=== PATIENT | female | born 1950 | race Caucasian/White ===

== ENCOUNTER → 2016-07-16 | Outpatient (CLI) | payer MEDICARE, BC, OTHER ==
[~2016-07-16] MED LIST: /ADVA50050 INH; ADVAIR INH; ALBU17IN2 INH; ALEVE PO; AUGM875T27 PO; BENA25CA2 PO; BENEPOW7 PO; BORON PO; CALCCHW12 OR; CHLORTRIMETON PO; CLAR10CA3 PO; CLIN300C2 PO; FISH1000 OR; FLEXERIL PO; FLON0.05; GLUC500T3 PO; LACTASE ENZYME PO; LOTR5CAP2 PO; LOTREL PO; LOVA20TA2 OR; MUCI600T34 PO; MULTIVIT PO; PRIL40CA PO; PROA1AER INH; PROL60SO SC; RECLAST IV; REFRESH OU; SING10TA31 PO; TYLE325T5 PO; VITA1CAP4 PO; VITA500T PO; VITAMIN D50000 UNT OR; [UNRECOGNIZED DRUG - OTHER] PO
--- NOTE | 2016-07-16 11:24 | REPMRS ---
Patient History The patient states she had a clinical breast exam in 07/2016. Patient is postmenopausal and has history of other cancer at age 39. Family history of breast cancer in sister at age 50 or over, breast cancer in maternal aunt at age 50 or over, and breast cancer in maternal cousin under age 50. Benign stereotatic breast biopsy of the left breast, 2000. Digital Woman Screen Mammo: July 16, 2016 - Exam #: [id number] Bilateral CC and MLO view(s) were taken. Technologist: Valerie Subramanian Technologist Prior study comparison: July 17, 2015, digital woman screen mammo performed at [facility]. June 29, 2014, digital woman screen mammo performed at [facility]. FINDINGS: The breast tissue is heterogeneously dense. This may lower the sensitivity of mammography. There has been no change in the appearance of the mammogram from the prior studies. There is a moderate amount of residual fibroglandular tissue which is fairly symmetric. There is no interval development of dominant mass, areas of architectural distortion, or clustered microcalcification typical of malignancy. ASSESSMENT: BI-RADS/ACR category 1 mammogram. Negative. Recommendation Routine screening mammogram in 1 year (for women over age 40). This mammogram was interpreted with the aid of an FDA-approved computer-aided dectection system. Electronically Signed By: John King MD 07/16/16 112
== END ==
LOC: M WHC 09:01
PROVIDERS: ATTEND Nurse Practitioner Family
DX: Z12.31 Encounter for screening mammogram for malignant neoplasm of breast (principal); Z80.3 Family history of malignant neoplasm of breast; Z78.0 Asymptomatic menopausal state; Z12.12 Encounter for screening for malignant neoplasm of rectum; Z12.4 Encounter for screening for malignant neoplasm of cervix; N81.10 Cystocele, unspecified
CPT/HCPCS: 82270; G0101; G0202

== ENCOUNTER → 2016-10-02 | Outpatient (REF) | payer MEDICARE, BC, OTHER ==
[~2016-10-02] MED LIST changes: -AUGM875T27 PO; +AUGM875T28 PO; -MUCI600T34 PO; +MUCI600T37 PO; -PROA1AER INH; +PROAAER10 INH; +VITA-137 PO; -VITA1CAP4 PO
== END ==
LOC: M LAB REF 17:05
PROVIDERS: ATTEND Nurse Practitioner Family
DX: Z51.81 Encounter for therapeutic drug level monitoring (principal); Z79.899 Other long term (current) drug therapy

== ENCOUNTER → 2017-05-04 | Outpatient (REF) | payer MEDICARE, BC, OTHER ==
[2017-05-04 20:29] LABS: INFLUENZA A AMPLIFICATION NEGATIVE (NEGATIVE); INFLUENZA B AMPLIFICATION NEGATIVE (NEGATIVE)
== END ==
LOC: M LAB REF 17:34
DX: R05 Cough (principal)
CPT/HCPCS: 87502

== ENCOUNTER → 2018-07-18 | Outpatient (CLI) | payer MEDICARE, BC, OTHER ==
[~2018-07-18] MED LIST changes: -/ADVA50050 INH; +ADVA1AER2 INH
--- NOTE | 2018-07-18 12:12 | REPMRS ---
Patient History The patient states she had a clinical breast exam in 07/2018. Patient is postmenopausal and has history of skin cancer at age 39. Family history of breast cancer at age 50 or over in maternal aunt, breast cancer under age 50 in maternal cousin, breast cancer at age 50 or over in sister. Benign stereotatic breast biopsy of the left breast, 2000. No Hormone Replacement Therapy Digital Woman Screen Mammo: July 18, 2018 - Exam #: [id number] Bilateral CC and MLO view(s) were taken. Technologist: Megan Forrest, Technologist Prior study comparison: July 16, 2017, digital woman screen mammo performed at [facility]. July 16, 2016, digital woman screen mammo performed at [facility]. July 17, 2015, digital woman screen mammo performed at [facility]. FINDINGS: The breast tissue is heterogeneously dense. This may lower the sensitivity of mammography. There is a moderate amount of heterogeneously dense fibroglandular tissue which is fairly symmetric. There is no interval development of dominant mass, architectural distortion, or clustered microcalcification typical of malignancy. There has been no change in the appearance of the mammogram from the prior studies. 3-D tomosynthesis shows no additional findings. Assessment: BI-RADS/ACR category 1 mammogram. Negative Mammogram. Recommendation Routine screening mammogram of both breasts in 1 year (for women over age 40). This patient's Lifetime Breast Cancer RIsk is estimated at 15.1 %. This mammogram was interpreted with the aid of an FDA-approved computer-aided dectection system. Electronically Signed By: Gallito Barrow MD 07/18/18 [id number]
== END ==
LOC: M WHC 09:48
PROVIDERS: ATTEND Nurse Practitioner Family
DX: Z01.419 Encounter for gynecological examination (general) (routine) without abnormal findings (principal); Z12.31 Encounter for screening mammogram for malignant neoplasm of breast; Z78.0 Asymptomatic menopausal state; Z85.828 Personal history of other malignant neoplasm of skin; Z80.3 Family history of malignant neoplasm of breast; Z86.018 Personal history of other benign neoplasm
CPT/HCPCS: 77063; 77067; G0101

== ENCOUNTER → 2019-07-20 | Outpatient (CLI) | payer MEDICARE, BC, OTHER ==
--- NOTE | 2019-07-20 12:01 | REPMRS ---
Patient History The patient states she had a clinical breast exam in July 2019. Family history of breast cancer at age 50 or over in maternal aunt, breast cancer under age 50 in maternal cousin, breast cancer at age 50 or over in sister. Benign stereotatic breast biopsy of the left breast, 2000. No Hormone Replacement Therapy Digital Woman Screen Mammo: July 20, 2019 - Exam #: [id number] Bilateral CC and MLO view(s) were taken. Technologist: Alley Bangura, Technologist Prior study comparison: July 18, 2018, bilateral digital woman screen mammo performed at [facility]. July 16, 2017, digital woman screen mammo performed at [facility]. July 16, 2016, digital woman screen mammo performed at [facility]. FINDINGS: There are scattered fibroglandular densities. The Volpara volumetric breast density category is:B. There has been no change in the appearance of the mammogram from the prior studies. There is a mild amount of scattered fibroglandular density which is fairly symmetric. There is no interval development of dominant mass, architectural distortion, or grouped microcalcification suggestive of malignancy. 3-D tomosynthesis shows no additional findings. Assessment: BI-RADS/ACR category 1 mammogram. Negative Mammogram. Recommendation Routine screening mammogram of both breasts in 1 year (for women over age 40). This patient's Lifetime Breast Cancer Risk is estimated at 14.3 %. This mammogram was interpreted with the aid of an FDA-approved computer-aided dectection system. Electronically Signed By: Gallito Barrow MD 07/20/19 [id number]
--- NOTE | 2019-07-27 14:33 | DEXA ---
AP SPINE L1 - L4 1.077 -1.0 0.7 LT FEMUR TOTAL 0.949 -0.5 1.0 LT NECK 0.834 -1.5 0.2 RT FEMUR TOTAL 0.999 -0.1 1.4 RT NECK 0.827 -1.5 0.2 TOTAL BODY TOTAL OTHER COMMENTS: There is low bone density of the spine and hips. The increased density of the spine does represent a significant change. The increased density of the left hip does not represent significant change. The increased density of the right hip does represent significant change. The density of the spine is increased 20.9% since the initial exam on 02/13/2003. The increased 6.5% since the most recent exam on 07/16/2017. The density of the left hip has decreased 0.9% since initial exam on 02/13/2003. The density of the left hip has increased 1.9% since the most recent exam on 07/16/2017. The density of the right hip has increased 5.3 percent since the initial exam on 02/13/2003. The density of the right hip has increased 3.6% since the most recent exam on 07/16/2017. FOLLOW-UP: Recommendation for the next bone density exam: 2 years. TOM
== END ==
LOC: M WHC 09:35
PROVIDERS: ATTEND Nurse Practitioner Family
DX: Z01.411 Encounter for gynecological examination (general) (routine) with abnormal findings (principal); Z12.31 Encounter for screening mammogram for malignant neoplasm of breast; M81.0 Age-related osteoporosis without current pathological fracture; Z80.3 Family history of malignant neoplasm of breast; Z86.018 Personal history of other benign neoplasm; Z12.12 Encounter for screening for malignant neoplasm of rectum
CPT/HCPCS: 77063; 77067; 77080; 82270; G0101; G0123

== ENCOUNTER → 2019-07-20 | Outpatient (REF) | payer MEDICARE, BC | LOC: M SFHCWAGY 17:17 | PROVIDERS: ATTEND Nurse Practitioner Family | DX: Z12.4 Encounter for screening for malignant neoplasm of cervix (principal); N95.2 Postmenopausal atrophic vaginitis ==

== ENCOUNTER → 2019-07-25 | Outpatient (CLI) | payer MEDICARE, BC, OTHER ==
--- NOTE | 2019-07-25 12:42 | REP ---
PELVIS ULTRASOUND: Transabdominal pelvic ultrasound performed. Bladder measures 11.8 x 7.7 x 10.4 cm. Uterus measures 6.7 x 1.9 x 5.3 cm. Ill-defined calcifications are seen in the myometrium. Endometrial thickness is 3 mm. There is no endometrial fluid collection. The ovaries are normal in size and echotexture, right ovary measuring 1.7 x 1.5 x 2.0 cm and left ovary 2.6 x 1.7 x 1.6 cm. There is no adnexal mass or free fluid identified. There is no evidence of ovarian torsion, blood flow is seen in each ovary with duplex Doppler evaluation. IMPRESSION: No pelvic mass or free fluid identified. Normal endometrial thickness at 3 mm.
== END ==
LOC: M WHC 11:27
PROVIDERS: ATTEND Nurse Practitioner Family
DX: R19.00 Intra-abdominal and pelvic swelling, mass and lump, unspecified site (principal)

== ENCOUNTER 2019-07-28 10:51 | Emergency (ER) | payer MEDICARE, BC, OTHER ==
[~2019-07-28] VITALS: Ht 157.5 cm; Wt 63.4 kg
[2019-07-28 12:07] LABS: BASO # 0.1 10^3/uL (0.0-0.2); BASO % 0.8 % (0.0-1.0); EOS # 0.2 10^3/uL (0.0-0.5); EOS % 3.1 % (0.0-3.0); HEMATOCRIT 41.8 % (36.0-47.0); HEMOGLOBIN 13.5 g/dl (12.0-15.5); LYMPH # 1.2 10^3/uL (1.5-5.0); LYMPH % 20.4 % (24.0-44.0); MEAN CORPUSCULAR HEMOGLOBIN 28.5 pg (27.0-33.0); MEAN CORPUSCULAR HGB CONC 32.3 g/dl (32.0-36.5); MEAN CORPUSCULAR VOLUME 88.2 fl (80.0-96.0); MONO # 0.4 10^3/uL (0.0-0.8); MONO % 6.1 % (0.0-5.0); NEUTROPHILS # 4.2 10^3/uL (1.5-8.5); NEUTROPHILS % 69.3 % (36.0-66.0); PLATELET COUNT, AUTOMATED 250 10^3/uL (150-450); RED BLOOD COUNT 4.74 10^6/uL (4.00-5.40); WHITE BLOOD COUNT 6.1 10^3/uL (4.0-10.0)
--- NOTE | 2019-07-28 12:23 | REP ---
CT BRAIN WITHOUT CONTRAST: REASON: Trauma 2 days ago. PRIORS: None. TECHNIQUE: 4.5 mm contiguous transaxial sections were obtained from the skull base to the cerebral convexities with thin cuts through the posterior fossa without the administration of intravenous contrast. FINDINGS: The ventricles and sulci are consistent with the patient's age. There are no extra-axial fluid collections. There is no mass effect. The deep cerebral white matter is consistent with the patient's age. The orbital and petrous structures, cerebellopontine angles, and posterior fossa are unremarkable. The sella turcica, cavernous, and paracavernous structures are essentially unremarkable. The visualized portions of the paranasal sinuses and mastoid air cells are clear. Images of the skull base show no gross abnormality. IMPRESSION: Essentially unremarkable CT examination of the brain. Electronically Signed by Kana Guo DO 07/28/2019 01:39 P
--- NOTE | 2019-07-28 12:58 | REP ---
CT study of the cervical spine without contrast: History: Injury in a fall. No comparison study. Technique: Helical scanning is acquired and overlapping 2 mm high resolution axial images were generated and reviewed at bone and soft tissue window settings. Coronal and sagittal multiplanar re-formations images are generated. CT findings: There is no evidence of cervical spine element fracture. No skull base fracture is seen. Cervical vertebral body heights are preserved. Alignment is normal. Facet joints are normally aligned bilaterally at each cervical level on multiplanar re-formations images. There is no evidence of intraspinal or paraspinal hematoma. No extra vertebral abnormality is seen. There are degenerative disc changes most pronounced at C3-4, C4-5, and C5-6. Posterior osteophytic ridging is fairly prominent C4-5 and C5-6. There is mild bilateral uncovertebral spurring at these levels. There are mild osteoarthritic facet changes. Impression: Degenerative spondylosis changes. Otherwise negative CT study of the cervical spine without contrast. No fracture seen. Electronically Signed by Aldo Barrow MD 07/28/2019 12:49 P
--- NOTE | 2019-07-28 14:23 | REP ---
PELVIS: THREE VIEWS. HISTORY: Injury in a fall. Tenderness to palpation and ecchymosis. FINDINGS: Tubal ligation bands are visible. The visualized bowel gas pattern is normal. No sacral fracture is seen. SI joints are intact. The presacral soft tissues do not appear to be widened. IMPRESSION: No sacral or coccygeal fracture seen. Electronically Signed by Aldo Barrow MD 07/28/2019 04:16 P
[2019-07-28 14:30] VITALS: BP 157/78
== END 2019-07-28 14:32 | disposition home or self-care (01) ==
LOC: M ED 10:51
DX: S06.0X0A Concussion without loss of consciousness, initial encounter (principal); S16.1XXA Strain of muscle, fascia and tendon at neck level, initial encounter; S30.0XXA Contusion of lower back and pelvis, initial encounter; W18.39XA Other fall on same level, initial encounter; Y92.71 Barn as the place of occurrence of the external cause; I10 Essential (primary) hypertension; E78.5 Hyperlipidemia, unspecified; M81.0 Age-related osteoporosis without current pathological fracture; Z87.442 Personal history of urinary calculi; Z88.1 Allergy status to other antibiotic agents; Z79.899 Other long term (current) drug therapy

== ENCOUNTER → 2020-07-19 | Outpatient (CLI) | payer MEDICARE, BC, OTHER | LOC: M WHC 11:36 | PROVIDERS: ATTEND Obstetrics & Gynecology | DX: N95.0 Postmenopausal bleeding (principal) ==

== ENCOUNTER → 2020-07-19 | Outpatient (CLI) | payer MEDICARE, BC, OTHER ==
[~2020-07-19] MED LIST changes: +ADV500INH INH; +AMLOD/BENAZP; +BONI1TAB PO; +CYCL-707; +FLON27.5; +LOVA20TA2 PO; +MONT10TA10 PO; +NEXI20CA PO; +xyzal
--- NOTE | 2020-07-19 12:54 | REPMRS ---
Patient History The patient states she had a clinical breast exam in July 2020. Family history of breast cancer at age 50 or over in maternal aunt, breast cancer under age 50 in maternal cousin, breast cancer at age 50 or over in sister. Benign stereotatic breast biopsy of the left breast, 2000. No Hormone Replacement Therapy No breast complaints today Patient signed the MRS sheet 1st covid vaccine 05/08/20-right arm-Pfizer 2nd covid vaccine 05/29/20-right arm Best views possible on MLO's, unable to get patient to relax and visualize more muscle Priors on PACS Patient Identification Verified Digital Woman Screen Mammo: July 19, 2020 - Exam #: [id number] Bilateral CC and MLO view(s) were taken. Technologist: Alley Bangura, Technologist Prior study comparison: July 20, 2019, bilateral digital woman screen mammo performed at [facility]. July 18, 2018, bilateral digital woman screen mammo performed at [facility]. FINDINGS: The breast tissue is heterogeneously dense. This may lower the sensitivity of mammography. Screening. Digital screening (2D) mammography was performed bilaterally in the CC and MLO projections. Additionally, breast tomosynthesis (3D mammography) was performed bilaterally in the CC and MLO projections. Todays exam was compared to the prior exams. By history, the patient has no complaints of a palpable breast abnormality or other significant breast complaints. The breasts are unchanged in size and shape. Once again, dense heterogenous fibroglandular elements are seen bilaterally in a stable appearing pattern but to such a degree that the sensitivity of the mammogram in detecting cancer is decreased.There are no antonia-soft tissue densities or spiculated masses. There is no internal architectural distortion. Once again, stable benign appearing calcifications are seen.There are no suspicious antonia-calcific clusters. Skin thickening or nipple retraction is not present. IMPRESSION: BI-RADS Category 2- Benign Findings. There is no evidence of malignant alteration of the breasts. Followup examination recommended in one year. The Volpara volumetric breast density category is C, the breasts are heterogenously dense which may obscure small masses. This mammogram was read with the assistance of [employer],an FDA approved computer aided detection system for mammography. The lifetime Tyrer-Cuzick score is 13.5 % Negative x-ray reports should not delay surgical consultation if a dominant or clinically suspicious mass is present. Not all breast cancers can be identified by mammography. Therefore, we recommend that you continue to perform regular breast self-examination and physical examination and then promptly contact your physician of any concerns or changes. Adenosis and dense breasts may obscure an underlying neoplasm. Assessment: BI-RADS/ACR category 2 mammogram. Benign Findings. Recommendation Routine screening mammogram of both breasts in 1 year. Electronically Signed By: Kana Guo DO 07/19/20 [id number]
== END ==
LOC: M WHC 10:54
PROVIDERS: ATTEND Obstetrics & Gynecology
DX: Z12.31 Encounter for screening mammogram for malignant neoplasm of breast (principal); Z80.3 Family history of malignant neoplasm of breast; Z86.018 Personal history of other benign neoplasm; R92.1 Mammographic calcification found on diagnostic imaging of breast
CPT/HCPCS: 77063; 77067; G0463

== ENCOUNTER → 2020-08-02 | Outpatient (CLI) | payer MEDICARE, BC, OTHER | LOC: M LABSMTC 12:18 | PROVIDERS: ATTEND Anesthesiology | DX: Z20.828 Contact with and (suspected) exposure to other viral communicable diseases (principal); Z11.59 Encounter for screening for other viral diseases ==

== ENCOUNTER 2020-08-07 08:10 | Day surgery (SDC) | payer MEDICARE, BC, OTHER ==
[~2020-08-07] VITALS: Ht 162.6 cm; Wt 59.5 kg
[~2020-08-07 08:10] MED LIST changes: +LIDOCAINE 1% MDV 20ML VIAL SQ PRN; +LR 1,000 ML IV ONE
[2020-08-07] MEDS ORDERED: METHYLENE BLUE 0.5% (5MG/ML) 10 ML AMP (PROVAYBLUE) As Ordered ONE (10:06)
[2020-08-07] MEDS ORDERED: LIDOCAINE W/EPINEPHRINE 1% 20ML VIAL As Ordered ONE (10:06)
[2020-08-07] MEDS ORDERED: EPINEPHrine 1MG/ML INJ 30ML MD-VIAL As Ordered ONE (10:07)
[2020-08-07] MEDS ORDERED: ROCURONIUM BROMIDE 50 MG/5 ML VIAL As Ordered ONE (10:12)
[2020-08-07] MEDS ORDERED: propofoL 200 MG/20 ML VIAL As Ordered ONE (10:12)
[2020-08-07] MEDS ORDERED: LIDOCAINE 2% 100MG/5ML SDV (FOR ANES.) As Ordered ONE (10:12)
[2020-08-07] MEDS ORDERED: MIDAZOLAM INJ 2MG/2ML VIAL (J2250 PER 1MG) As Ordered ONE (10:13)
[2020-08-07] MEDS ORDERED: fentaNYL 100 MCG/2 ML INJECTION (J3010) As Ordered ONE (10:13)
[2020-08-07] MEDS ORDERED: KETOROLAC 60MG 2ML VIAL As Ordered ONE (10:50)
[2020-08-07] MEDS ORDERED: ONDANSETRON 4MG/2ML VIAL As Ordered ONE (10:50)
[2020-08-07] MEDS ORDERED: dexameTHASONE 4 MG/ML 1ML VIAL (J1100 PER 1MG) As Ordered ONE (10:50)
[2020-08-07] MEDS ORDERED: SUGAMMADEX SODIUM 500 MG/5 ML VIAL (BRIDION) As Ordered ONE (10:50)
[2020-08-07] MEDS ORDERED: ONDANSETRON 4MG/2ML VIAL IV PRN (11:40)
[2020-08-07] MEDS ORDERED: PERCOCET 5MG/325MG TAB PO PRN (11:40)
[2020-08-07] MEDS ORDERED: METOCLOPRAMIDE INJ 10MG/2ML VIAL (J2765 PER 1) IV PRN (11:40)
[2020-08-07] MEDS ORDERED: fentaNYL 100 MCG/2 ML INJECTION (J3010) IV PRN (11:40)
[2020-08-07] MEDS ORDERED: LR 1,000 ML IV SCH ×2 (11:40→12:35)
[2020-08-07] MEDS ORDERED: ACETAMINOPH W/CODEINE #3 TAB UD PO PRN (12:35)
[2020-08-07 12:40] VITALS: BP 164/75
--- NOTE | 2020-08-07 16:42 | RO ---
OPERATIVE NOTE DATE OF OPERATION: 08/07/2020 PREOPERATIVE DIAGNOSIS: Nasoseptal deviation, nasal valve collapse. POSTOPERATIVE DIAGNOSIS: Nasoseptal deviation, nasal valve collapse. OPERATIVE PROCEDURE: Septoplasty and nasal valve repair. SURGEON: Sebastien Schulte MD AFTER SCHOOL PROGRAM COORDINATOR: ANESTHESIA: DESCRIPTION OF PROCEDURE: Under general anesthesia with the patient intubated the patient was prepped and draped in usual manner. I infiltrated with Lidocaine with Epinephrine. I used pledgets of Adrenalin 1:1000. I started first by making an incision anteriorly and elevated the mucoperichondrium off the septal cartilage. I dissected posteriorly and inferiorly. I dissected off the maxillary crest. I then divided the quadrangular cartilage from the maxillary crest and ethmoid plate and then removed portion of the ethmoid plate and maxillary crest which were deviated toward the left side. Once that was done everything looked nice and straight. I then closed that wound with 4-0 Monocryl. I then made an incision anterior to the inferior aspect of the nasal bone on both sides incised the nose and elevated the mucoperiosteum. I drilled two holes on either side. I then put 4-0 Monocryl suture through the hole around the inferolateral portion of the lower lateral cartilage on both sides and then back through the nasal bone. I tied that off. This elevated the nasal valve area. I closed the mucosa with 4-0 chromic. The patient tolerated the procedure well. 10 mL estimated blood loss. The patient was extubated and transferred to the recovery room in excellent condition.
--- NOTE | 2020-08-10 00:16 | ECGEPIP ---
[facility] Test Date: 2020-08-07 Pat Name: JD RANKIN Department: Room: - Gender: Female Erp Specialist: CALEB : [id number] Requested By: ALMA GREGORY Order Number: [id number] Reading MD: Jose Chaudhari Measurements Intervals [place] Rate: 63 P: 70 OR: 160 QRS: -19 QRSD: 94 T: 32 QT: 418 QTc: 427 Interpretive Statements Normal sinus rhythm Minimal voltage criteria for LVH, may be normal variant ( Paco product ) Compared to prior tracings (2) in the system, no remarkable changes Electronically Signed on 08-10-2020 0:15:53 EDT by Jose Chaudhari
== END 2020-08-07 12:55 | disposition home or self-care (01) ==
LOC: M SDC 08:10
PROVIDERS: ATTEND Otolaryngology
DX: J34.2 Deviated nasal septum (principal); J34.89 Other specified disorders of nose and nasal sinuses; E78.5 Hyperlipidemia, unspecified; I10 Essential (primary) hypertension; K21.9 Gastro-esophageal reflux disease without esophagitis; Z79.899 Other long term (current) drug therapy; D64.9 Anemia, unspecified; Z87.891 Personal history of nicotine dependence; M81.0 Age-related osteoporosis without current pathological fracture; J45.909 Unspecified asthma, uncomplicated; G43.909 Migraine, unspecified, not intractable, without status migrainosus; Z88.1 Allergy status to other antibiotic agents
CPT/HCPCS: 30465; 30520; 88300; 93005; J1100; J1885; J2250; J2405; J3010; Q9968

== ENCOUNTER 2020-08-09 11:35 | Emergency (ER) | payer MEDICARE, BC, OTHER ==
[~2020-08-09] VITALS: Ht 162.6 cm; Wt 59.3 kg
[~2020-08-09 11:35] MED LIST changes: -LIDOCAINE 1% MDV 20ML VIAL SQ PRN; -LR 1,000 ML IV ONE
[2020-08-09] MEDS ORDERED: ACET1TAB16 (11:52)
[2020-08-09 14:59] LABS: BASO % 0.4 % (0.0-1.0); EOS % 0.1 % (0.0-3.0); HEMOGLOBIN 13.5 g/dl (12.0-15.5); LYMPH # 1.5 10^3/uL (1.5-5.0); LYMPH % 16.4 % (24.0-44.0); MEAN CORPUSCULAR HEMOGLOBIN 28.3 pg (27.0-33.0); MEAN CORPUSCULAR HGB CONC 32.1 g/dl (32.0-36.5); MEAN CORPUSCULAR VOLUME 88.1 fl (80.0-96.0); MONO # 0.8 10^3/uL (0.0-0.8); MONO % 8.5 % (2.0-8.0); NEUTROPHILS # 6.9 10^3/uL (1.5-8.5); NEUTROPHILS % 74.3 % (36.0-66.0); PLATELET COUNT, AUTOMATED 238 10^3/uL (150-450); RED BLOOD COUNT 4.77 10^6/uL (4.00-5.40); WHITE BLOOD COUNT 9.3 10^3/uL (4.0-10.0)
[2020-08-09 15:12] LABS: INR 0.99; PROTHROMBIN TIME 13.3 SECONDS (12.5-14.3)
[2020-08-09 15:13] LABS: PARTIAL THROMBOPLASTIN TIME 27.1 SECONDS (24.2-38.5)
[2020-08-09 15:24] LABS: ALBUMIN 3.9 GM/DL (3.2-5.2); BILIRUBIN,DIRECT 0.1 MG/DL (0.0-0.2); BILIRUBIN,TOTAL 0.7 MG/DL (0.2-1.0); C REACTIVE PROTEIN QUANTITATIV 5.45 MG/DL (0.00-0.30); TOTAL PROTEIN 7.4 GM/DL (6.4-8.2)
[2020-08-09] MEDS ORDERED: ACETAMINOPHEN 325 MG TAB PO ONE (16:20)
[2020-08-09 16:33] VITALS: BP 138/66
== END 2020-08-09 16:35 | disposition home or self-care (01) ==
LOC: M ED 11:35
DX: T88.9XXA Complication of surgical and medical care, unspecified, initial encounter (principal); G50.1 Atypical facial pain; R51.9 Headache, unspecified; J02.9 Acute pharyngitis, unspecified; Z88.8 Allergy status to other drugs, medicaments and biological substances; Z79.899 Other long term (current) drug therapy

== ENCOUNTER → 2020-08-21 | Outpatient (CLI) | payer MEDICARE, BC, OTHER ==
[~2020-08-21] MED LIST changes: +ACET1TAB16
--- NOTE | 2020-08-21 14:15 | REP ---
INDICATION: N95.0 PMB. COMPARISON: 07/25/2019 the latest prior TECHNIQUE: Transvesical and transvaginal scanning FINDINGS: The uterus measures 5.8 x 2.1 x 4.9 cm. It is unchanged from the prior exam. The endometrial echo complex is unchanged from the prior exam with a maximal thickness of 2 mm. Neither ovary was seen transvesical air transvaginally. IMPRESSION: 1. No significant change compared to the prior exam. There are a few stable scattered echogenic foci in the uterine parenchyma consistent with stable ill-defined calcifications likely from myomatous change or possibly from vascular calcifications. 2. Neither ovary could be identified as described above. Since the patient has postmenopausal bleeding I would suggest follow-up with pre and post gadolinium enhanced pelvic MRI if clinically relevant. <Electronically signed by Kana Guo > 08/21/20 [id number]
== END ==
LOC: M WHC 10:30
PROVIDERS: ATTEND Obstetrics & Gynecology
DX: N95.0 Postmenopausal bleeding (principal)

== ENCOUNTER → 2020-11-29 | Outpatient (CLI) | payer MEDICARE, BC, OTHER ==
--- NOTE | 2020-11-29 12:45 | REP ---
INDICATION: ATRAUMATIC CERVICALGIA. COMPARISON: None. TECHNIQUE: Eight views total FINDINGS: There is advanced posterior disc space narrowing at C4-5 with more moderate disc space narrowing at all other levels. Anterior and posterior osteophytic ridging is seen C3-4 through C5-6. There is evidence of bilateral C3-4 through C5-6 foraminal encroachment due to osteophytic spurring. There is evidence of limitation of extension not flexion. Vertebral body height and alignment is within normal limits. The facet joints are well aligned bilaterally. Hypertrophic degenerative facet and uncovertebral joint changes are present at every level bilaterally. The dens cannot be effectively evaluated secondary to the superimposition of osseous structures and/or dentition on all views. IMPRESSION: Chronic changes as described above. <Electronically signed by Kana Guo > 11/29/20 [id number]
== END ==
LOC: M WUC 11:53
PROVIDERS: ATTEND Registered Nurse
DX: M50.321 Other cervical disc degeneration at C4-C5 level (principal); M50.322 Other cervical disc degeneration at C5-C6 level; M50.323 Other cervical disc degeneration at C6-C7 level; M25.78 Osteophyte, vertebrae

== ENCOUNTER → 2020-12-24 | Outpatient (CLI) | payer MEDICARE, BC, OTHER ==
--- NOTE | 2020-12-24 12:09 | REP ---
INDICATION: SOB,ASTHMA. COMPARISON: 2414 the latest prior TECHNIQUE: PA and lateral FINDINGS: There is a new asymmetric density in the left lower lobe which measures approximately 1.3 cm. There are no other significant lung field changes. Pleural angles are sharp the heart is not enlarged. There is no significant change in appearance of the osseous structures. IMPRESSION: There is a new left lower lobe density as described above. Contrast-enhanced CT examination of the chest is recommended. <Electronically signed by Kana Guo > 12/24/20 [id number]
== END ==
LOC: M WUC 09:59
PROVIDERS: ATTEND Internal Medicine
DX: R91.8 Other nonspecific abnormal finding of lung field (principal); R06.02 Shortness of breath; J45.909 Unspecified asthma, uncomplicated

== ENCOUNTER → 2021-01-03 | Outpatient (CLI) | payer MEDICARE, BC, OTHER ==
[~2021-01-03] MED LIST changes: +ISOVUE-370 76% 100ML VIAL ONE
--- NOTE | 2021-01-03 12:58 | REP ---
INDICATION: DENSITY LLL ON CXR COMPARISON: None. TECHNIQUE: Standard helical technique after the intravenous administration of 100 cc Isovue 370 FINDINGS: The mediastinum and pulmonary bernardino are within normal limits. There is no evidence of a mass or adenopathy. The imaged upper abdomen and imaged osseous structures are within normal limits. There is an old right-sided rib fracture. There are mild spinal degenerative changes. Evaluation of the lung phelps shows a slightly asymmetric 6 mm size nodule in the antral basal segment of the left lower lobe. There is a subtle ground-glass nodule in the inferior most aspect of the posterior right upper lobe abutting the major fissure measuring 1.5 cm. There is cylindrical bronchiectasis and evidence of mild biapical pleuroparenchymal scarring. IMPRESSION: 1. 6 mm size nodule in the left lower lobe as described above. Cording to the revised Fleischner society criteria this represents a lung rads category 3 lesion for which a six-month follow-up CT is recommended. 2. Right lung ground-glass opacity as described above which can also be followed in the recommended six-month time interval. 3. Other findings as described above <Electronically signed by Kana Guo > 01/03/21 0279
== END ==
LOC: M PLAIMG 10:53
PROVIDERS: ATTEND Registered Nurse
DX: R91.8 Other nonspecific abnormal finding of lung field (principal)
CPT/HCPCS: 71260; Q9967

== ENCOUNTER → 2021-02-14 | Outpatient (CLI) | payer MEDICARE, BC, OTHER ==
[~2021-02-14] MED LIST changes: -ISOVUE-370 76% 100ML VIAL ONE; -MONT10TA10 PO; +MONT10TA97 PO
== END ==
LOC: M WUC 10:15
PROVIDERS: ATTEND Internal Medicine
DX: M48.04 Spinal stenosis, thoracic region (principal); M51.34 Other intervertebral disc degeneration, thoracic region

== ENCOUNTER 2021-05-03 15:28 | Emergency (ER) | payer MEDICARE, BC, OTHER ==
[~2021-05-03] VITALS: Ht 160 cm; Wt 54.5 kg
[2021-05-03] MEDS ORDERED: ACETAMINOPHEN TAB 650MG DOSE (2X325MG) PO ONE (16:40)
[2021-05-03] MEDS ORDERED: methocarbamoL 500 MG TAB PO ONE (16:40)
[2021-05-03 17:01] LABS: BASO # 0.1 10^3/uL (0.0-0.2); BASO % 0.9 % (0.0-1.0); EOS # 0.2 10^3/uL (0.0-0.5); EOS % 1.6 % (0.0-3.0); HEMATOCRIT 41.2 % (36.0-47.0); HEMOGLOBIN 13.1 g/dl (12.0-15.5); LYMPH # 1.3 10^3/uL (1.5-5.0); MEAN CORPUSCULAR HEMOGLOBIN 27.5 pg (27.0-33.0); MEAN CORPUSCULAR HGB CONC 31.8 g/dl (32.0-36.5); MEAN CORPUSCULAR VOLUME 86.6 fl (80.0-96.0); MONO # 0.7 10^3/uL (0.0-0.8); MONO % 7.1 % (2.0-8.0); NEUTROPHILS # 7.1 10^3/uL (1.5-8.5); PLATELET COUNT, AUTOMATED 288 10^3/uL (150-450); RED BLOOD COUNT 4.76 10^6/uL (4.00-5.40); WHITE BLOOD COUNT 9.3 10^3/uL (4.0-10.0)
[2021-05-03 17:46] LABS: BLOOD UREA NITROGEN 11 MG/DL (7-18); CALCIUM LEVEL 8.7 MG/DL (8.8-10.2); CARBON DIOXIDE LEVEL < 1.0 MEQ/L (21-32); CHLORIDE LEVEL 111 MEQ/L (98-107); GLOMERULAR FILTRATION RATE > 60.0 (>39); GLUCOSE, FASTING 110 MG/DL (70-100); POTASSIUM SERUM 4.5 MEQ/L (3.5-5.1); SODIUM LEVEL 144 MEQ/L (136-145)
[2021-05-03 18:21] VITALS: BP 152/85
== END 2021-05-03 18:24 | disposition home or self-care (01) ==
LOC: M ED 15:28
DX: M62.830 Muscle spasm of back (principal); I10 Essential (primary) hypertension; E78.5 Hyperlipidemia, unspecified; Z87.442 Personal history of urinary calculi; Z79.899 Other long term (current) drug therapy

== ENCOUNTER → 2021-05-21 | Outpatient (CLI) | payer MEDICARE, BC, OTHER ==
[~2021-05-21] MED LIST changes: +GASTROGRAFIN SOLUTION 30ML (Q9963) As Ordered ONE; +ISOVUE-370 76% 100ML VIAL As Ordered ONE
== END ==
LOC: M RAD 12:49
PROVIDERS: ATTEND Registered Nurse
DX: R91.1 Solitary pulmonary nodule (principal)
CPT/HCPCS: 71250; 74178; Q9963; Q9967

== ENCOUNTER 2021-06-26 11:33 | Inpatient (IN) | payer MEDICARE, BC, OTHER ==
[~2021-06-26] VITALS: Ht 160 cm; Wt 55.4 kg
[~2021-06-26 11:33] MED LIST changes: -ACET1TAB16; +ACET300T48; -CYCL-707; +CYCL-707 PO; -GASTROGRAFIN SOLUTION 30ML (Q9963) As Ordered ONE; -ISOVUE-370 76% 100ML VIAL As Ordered ONE
[2021-06-26] MEDS ORDERED: LIDOCAINE 2% 5ML JELLY UROJET TOP ONE (13:00)
[2021-06-26] MEDS: MORPHINE 2 MG/ML 1ML VIAL IV PRN ×4 (13:55→23:58)
[2021-06-26 14:15] LABS: INR 0.94; PARTIAL THROMBOPLASTIN TIME 27.8 SECONDS (25.9-37.0)
[2021-06-26 14:18] LABS: RSV AMPLIFICATION NEGATIVE (NEGATIVE)
[2021-06-26 14:39] LABS: BLOOD UREA NITROGEN 10 MG/DL (7-18); CALCIUM LEVEL 9.2 MG/DL (8.8-10.2); CARBON DIOXIDE LEVEL 23 MEQ/L (21-32); CHLORIDE LEVEL 109 MEQ/L (98-107); GLOMERULAR FILTRATION RATE > 60.0 (>39); GLUCOSE, FASTING 104 MG/DL (70-100); POTASSIUM SERUM 3.9 MEQ/L (3.5-5.1); SODIUM LEVEL 143 MEQ/L (136-145)
[2021-06-26] MEDS ORDERED: OMEGCAP4 PO (14:48)
[2021-06-26] MEDS ORDERED: LEVOTAB10 PO (14:48)
[2021-06-26] MEDS ORDERED: LOTR5CAP2 PO (14:48)
[2021-06-26] MEDS ORDERED: LUTE6TAB2 PO (14:48)
[2021-06-26] MEDS ORDERED: LACT3000 PO (14:49)
[2021-06-26] MEDS ORDERED: HOME MED LIST COMPLETE! XX SCH (14:50)
[2021-06-26 15:23] LABS: BASO # 0.1 10^3/uL (0.0-0.2); BASO % 0.6 % (0.0-1.0); EOS % 0.3 % (0.0-3.0); HEMATOCRIT 40.4 % (36.0-47.0); HEMOGLOBIN 13.2 g/dl (12.0-15.5); LYMPH # 1.1 10^3/uL (1.5-5.0); LYMPH % 11.2 % (24.0-44.0); MEAN CORPUSCULAR HEMOGLOBIN 28.1 pg (27.0-33.0); MEAN CORPUSCULAR HGB CONC 32.7 g/dl (32.0-36.5); MEAN CORPUSCULAR VOLUME 86.1 fl (80.0-96.0); MONO # 0.7 10^3/uL (0.0-0.8); MONO % 6.7 % (2.0-8.0); NEUTROPHILS % 80.9 % (36.0-66.0); PLATELET COUNT, AUTOMATED 292 10^3/uL (150-450); RED BLOOD COUNT 4.69 10^6/uL (4.00-5.40); WHITE BLOOD COUNT 9.9 10^3/uL (4.0-10.0)
[2021-06-26] MEDS ORDERED: ALBUTEROL 90 MCG/ACT 8GM HFA INHALER INH PRN (16:25)
[2021-06-26] MEDS ORDERED: hydrALAZINE 20MG/ML 1ML VIAL (J0360 PER 20MG) IV PRN (17:15)
[2021-06-26 18:00] LABS: INR 0.94
[2021-06-26 18:01] LABS: PARTIAL THROMBOPLASTIN TIME 28.9 SECONDS (25.9-37.0)
[2021-06-26 20:05] VITALS: BP 174/84
[2021-06-26] MEDS: CYCLOBENZAPRINE 10MG TABLET PO SCH (21:19)
[2021-06-26] MEDS: BENAZEPRIL 5MG TAB PO SCH (21:20)
[2021-06-26] MEDS: SIMVASTATIN 20 MG TAB PO SCH (21:20)
[2021-06-26] MEDS: MONTELUKAST 10 MG TAB PO SCH (21:20)
[2021-06-26] MEDS: ONDANSETRON 4MG/2ML VIAL IV SCH ×2 (21:21→23:57)
[2021-06-26] MEDS: amLODIPine 5 MG TAB PO SCH (21:21)
[2021-06-27] VITALS (9 sets, daily range): BP systolic 114–152; BP diastolic 62–74
[2021-06-27] MEDS: MORPHINE 2 MG/ML 1ML VIAL IV PRN ×2 (02:37→05:21)
[2021-06-27] MEDS: ONDANSETRON 4MG/2ML VIAL IV SCH ×4 (05:20→20:05)
[2021-06-27] MEDS ORDERED: BUPIVACAINE HCL 0.5% 10ML VIAL As Ordered ONE (07:26)
[2021-06-27] MEDS ORDERED: LIDOCAINE W/EPINEPHRINE 1% 20ML VIAL As Ordered ONE (07:26)
[2021-06-27] MEDS ORDERED: BUPIVACAINE LIPOSOME/PF 1.3% 20ML VIAL (13.3MG/ML)(EXPAREL) As Ordered ONE (07:26)
[2021-06-27 07:30] LABS: HEMATOCRIT 39.9 % (36.0-47.0); HEMOGLOBIN 12.9 g/dl (12.0-15.5); MEAN CORPUSCULAR HEMOGLOBIN 27.8 pg (27.0-33.0); MEAN CORPUSCULAR HGB CONC 32.3 g/dl (32.0-36.5); PLATELET COUNT, AUTOMATED 286 10^3/uL (150-450); RED BLOOD COUNT 4.64 10^6/uL (4.00-5.40); WHITE BLOOD COUNT 7.2 10^3/uL (4.0-10.0)
[2021-06-27] MEDS ORDERED: TRANEXAMIC ACID 100 MG/ML 10ML VIAL As Ordered ONE (07:45)
[2021-06-27] MEDS ORDERED: ceFAZolin 2 GM/D5W 50 ML IV BAG (J0690 PER 500MG) As Ordered ONE (07:47)
[2021-06-27 07:54] LABS: BLOOD UREA NITROGEN 10 MG/DL (7-18); CALCIUM LEVEL 8.8 MG/DL (8.8-10.2); CARBON DIOXIDE LEVEL 29 MEQ/L (21-32); CHLORIDE LEVEL 105 MEQ/L (98-107); CREATININE FOR GFR 0.69 MG/DL (0.55-1.30); GLOMERULAR FILTRATION RATE > 60.0 (>39); GLUCOSE, FASTING 105 MG/DL (70-100); POTASSIUM SERUM 4.1 MEQ/L (3.5-5.1); SODIUM LEVEL 137 MEQ/L (136-145)
[2021-06-27] MEDS ORDERED: LIDOCAINE 2% 100MG/5ML SDV (FOR ANES.) As Ordered ONE (08:05)
[2021-06-27] MEDS ORDERED: ROCURONIUM BROMIDE 50 MG/5 ML VIAL As Ordered ONE (08:05)
[2021-06-27] MEDS ORDERED: dexameTHASONE 4 MG/ML 1ML VIAL (J1100 PER 1MG) As Ordered ONE (08:05)
[2021-06-27] MEDS ORDERED: fentaNYL 100 MCG/2 ML INJECTION As Ordered ONE (08:05)
[2021-06-27] MEDS ORDERED: ONDANSETRON 4MG/2ML VIAL As Ordered ONE (08:05)
[2021-06-27] MEDS ORDERED: propofoL 200 MG/20 ML VIAL As Ordered ONE (08:05)
[2021-06-27] MEDS ORDERED: MIDAZOLAM INJ 2MG/2ML VIAL (J2250 PER 1MG) As Ordered ONE (08:05)
[2021-06-27] MEDS ORDERED: ACETAMINOPHEN 1000MG 100ML IV BTL (OFIRMEV) (J0131 PER 10MG) As Ordered ONE (08:23)
[2021-06-27] MEDS ORDERED: SUGAMMADEX SODIUM 500 MG/5 ML VIAL (BRIDION) As Ordered ONE (08:24)
[2021-06-27] MEDS ORDERED: HYDROmorphone HCL 2MG/ML 1ML VIAL As Ordered ONE (08:39)
[2021-06-27] MEDS: PANTOPRAZOLE 40MG TAB (PROTONIX) PO SCH (09:00)
[2021-06-27] MEDS: CYCLOBENZAPRINE 10MG TABLET PO SCH ×3 (09:00→21:00)
[2021-06-27] MEDS ORDERED: VANCOMYCIN 1000MG/20ML VIAL As Ordered ONE (10:25)
[2021-06-27] MEDS ORDERED: PHENYLephrine 500MCG 5ML (100MCG/ML) SYRINGE As Ordered ONE (10:28)
[2021-06-27] MEDS ORDERED: ePHEDrine SULFATE 25 MG/5 ML(5MG/ML) SYRINGE As Ordered ONE (10:38)
[2021-06-27] MEDS ORDERED: KETOROLAC 60MG 2ML VIAL As Ordered ONE (10:39)
[2021-06-27] MEDS ORDERED: oxyCODONE 5MG TAB PO PRN (11:45)
[2021-06-27] MEDS ORDERED: LR 1,000 ML IV SCH (11:45)
[2021-06-27] MEDS ORDERED: ONDANSETRON 4MG/2ML VIAL IV PRN (11:45)
[2021-06-27] MEDS ORDERED: fentaNYL 100 MCG/2 ML INJECTION IV PRN (11:45)
[2021-06-27] MEDS: ceFAZolin SOD 2 GM in IV 1 EA IV SCH (15:06)
[2021-06-27] MEDS: PERCOCET 5MG/325MG TAB PO PRN (20:08)
[2021-06-27] MEDS: MONTELUKAST 10 MG TAB PO SCH (21:25)
[2021-06-27] MEDS: SIMVASTATIN 20 MG TAB PO SCH (21:25)
[2021-06-27] MEDS: BENAZEPRIL 5MG TAB PO SCH (21:28)
[2021-06-27] MEDS: amLODIPine 5 MG TAB PO SCH (21:28)
[2021-06-28] MEDS: ceFAZolin SOD 2 GM in IV 1 EA IV SCH (01:29)
[2021-06-28 02:00] VITALS: BP 142/60
[2021-06-28] MEDS: PERCOCET 5MG/325MG TAB PO PRN ×2 (05:10→11:54)
[2021-06-28] MEDS: ONDANSETRON 4MG/2ML VIAL IV SCH (05:11)
[2021-06-28 06:00] VITALS: BP 140/62
[2021-06-28 07:55] LABS: HEMATOCRIT 32.1 % (36.0-47.0); MEAN CORPUSCULAR HEMOGLOBIN 28.1 pg (27.0-33.0); MEAN CORPUSCULAR HGB CONC 32.7 g/dl (32.0-36.5); MEAN CORPUSCULAR VOLUME 85.8 fl (80.0-96.0); PLATELET COUNT, AUTOMATED 232 10^3/uL (150-450); RED BLOOD COUNT 3.74 10^6/uL (4.00-5.40); WHITE BLOOD COUNT 6.8 10^3/uL (4.0-10.0)
[2021-06-28 07:56] LABS: HEMOGLOBIN 10.5 g/dl (12.0-15.5)
[2021-06-28 08:14] LABS: BLOOD UREA NITROGEN 14 MG/DL (7-18); CALCIUM LEVEL 8.1 MG/DL (8.8-10.2); CARBON DIOXIDE LEVEL 27 MEQ/L (21-32); CHLORIDE LEVEL 106 MEQ/L (98-107); CREATININE FOR GFR 0.62 MG/DL (0.55-1.30); GLOMERULAR FILTRATION RATE > 60.0 (>39); GLUCOSE, FASTING 102 MG/DL (70-100); POTASSIUM SERUM 4.5 MEQ/L (3.5-5.1); SODIUM LEVEL 139 MEQ/L (136-145)
[2021-06-28] MEDS: PANTOPRAZOLE 40MG TAB (PROTONIX) PO SCH (09:31)
[2021-06-28] MEDS: CYCLOBENZAPRINE 10MG TABLET PO SCH ×3 (09:31→20:52)
[2021-06-28 10:00] VITALS: BP 130/65
[2021-06-28] MEDS: ONDANSETRON 4MG TAB PO SCH ×3 (11:54→23:25)
[2021-06-28 14:00] VITALS: BP 108/52
[2021-06-28] MEDS: RIVAROXABAN 10 MG TAB (XARELTO) PO SCH (17:44)
[2021-06-28] MEDS: amLODIPine 5 MG TAB PO SCH (20:52)
[2021-06-28] MEDS: BENAZEPRIL 5MG TAB PO SCH (20:52)
[2021-06-28] MEDS: ACETAMINOPHEN TAB 650MG DOSE (2X325MG) PO PRN (20:52)
[2021-06-28] MEDS: MONTELUKAST 10 MG TAB PO SCH (20:52)
[2021-06-28] MEDS: SIMVASTATIN 20 MG TAB PO SCH (20:52)
[2021-06-28 22:00] VITALS: BP 136/64
[2021-06-29] MEDS: ACETAMINOPHEN TAB 650MG DOSE (2X325MG) PO PRN ×3 (05:14→20:59)
[2021-06-29] MEDS: ONDANSETRON 4MG TAB PO SCH ×4 (05:14→18:31)
[2021-06-29 06:00] VITALS: BP 132/56
[2021-06-29] MEDS ORDERED: MIRALAX *UNIT DOSE* 17GM PACKET PO PRN (08:20)
[2021-06-29 09:18] LABS: HEMATOCRIT 33.9 % (36.0-47.0); HEMOGLOBIN 10.9 g/dl (12.0-15.5); MEAN CORPUSCULAR HEMOGLOBIN 27.7 pg (27.0-33.0); MEAN CORPUSCULAR HGB CONC 32.2 g/dl (32.0-36.5); PLATELET COUNT, AUTOMATED 272 10^3/uL (150-450); RED BLOOD COUNT 3.94 10^6/uL (4.00-5.40); WHITE BLOOD COUNT 7.4 10^3/uL (4.0-10.0)
[2021-06-29] MEDS: DOCUSATE SODIUM 100MG CAPSULE PO SCH ×3 (09:21→20:59)
[2021-06-29] MEDS: PANTOPRAZOLE 40MG TAB (PROTONIX) PO SCH (09:21)
[2021-06-29] MEDS: CYCLOBENZAPRINE 10MG TABLET PO SCH (09:22)
[2021-06-29 09:57] LABS: BLOOD UREA NITROGEN 23 MG/DL (7-18); CALCIUM LEVEL 9.3 MG/DL (8.8-10.2); CARBON DIOXIDE LEVEL 29 MEQ/L (21-32); CHLORIDE LEVEL 104 MEQ/L (98-107); CREATININE FOR GFR 0.65 MG/DL (0.55-1.30); GLOMERULAR FILTRATION RATE > 60.0 (>39); GLUCOSE, FASTING 107 MG/DL (70-100); POTASSIUM SERUM 4.5 MEQ/L (3.5-5.1); SODIUM LEVEL 139 MEQ/L (136-145)
[2021-06-29] MEDS ORDERED: CYCLOBENZAPRINE 5MG TABLET PO PRN (11:00)
[2021-06-29] MEDS ORDERED: traMADol 50 MG TAB PO PRN (11:05)
[2021-06-29 14:00] VITALS: BP 110/54
[2021-06-29] MEDS: RIVAROXABAN 10 MG TAB (XARELTO) PO SCH (17:00)
[2021-06-29] MEDS ORDERED: ONDANSETRON 4MG/2ML VIAL IV ONE (18:45)
[2021-06-29] MEDS ORDERED: BISACODYL 5 MG TAB PO PRN (18:45)
[2021-06-29] MEDS: MONTELUKAST 10 MG TAB PO SCH (20:59)
[2021-06-29] MEDS: SENNA 8.6 MG TAB (SENOKOT) PO SCH (20:59)
[2021-06-29] MEDS: SIMVASTATIN 20 MG TAB PO SCH (21:00)
[2021-06-29] MEDS: BENAZEPRIL 5MG TAB PO SCH (21:00)
[2021-06-29] MEDS: amLODIPine 5 MG TAB PO SCH (21:00)
[2021-06-29 22:00] VITALS: BP 124/58
[2021-06-30] MEDS: ONDANSETRON 4MG TAB PO SCH ×4 (00:22→17:02)
[2021-06-30] MEDS: ACETAMINOPHEN TAB 650MG DOSE (2X325MG) PO PRN ×3 (00:23→21:40)
[2021-06-30 05:53] LABS: HEMATOCRIT 32.4 % (36.0-47.0); HEMOGLOBIN 10.3 g/dl (12.0-15.5); MEAN CORPUSCULAR HEMOGLOBIN 27.8 pg (27.0-33.0); MEAN CORPUSCULAR HGB CONC 31.8 g/dl (32.0-36.5); MEAN CORPUSCULAR VOLUME 87.6 fl (80.0-96.0); PLATELET COUNT, AUTOMATED 275 10^3/uL (150-450); WHITE BLOOD COUNT 7.7 10^3/uL (4.0-10.0)
[2021-06-30 06:00] VITALS: BP 116/58
[2021-06-30 06:13] LABS: BLOOD UREA NITROGEN 30 MG/DL (7-18); CALCIUM LEVEL 8.8 MG/DL (8.8-10.2); CARBON DIOXIDE LEVEL 31 MEQ/L (21-32); CHLORIDE LEVEL 100 MEQ/L (98-107); CREATININE FOR GFR 0.79 MG/DL (0.55-1.30); GLOMERULAR FILTRATION RATE > 60.0 (>39); GLUCOSE, FASTING 105 MG/DL (70-100); POTASSIUM SERUM 4.3 MEQ/L (3.5-5.1); SODIUM LEVEL 136 MEQ/L (136-145)
[2021-06-30] MEDS: DOCUSATE SODIUM 100MG CAPSULE PO SCH ×3 (08:47→21:39)
[2021-06-30] MEDS: PANTOPRAZOLE 40MG TAB (PROTONIX) PO SCH (08:47)
[2021-06-30] MEDS ORDERED: CYCL5TAB PO (09:06)
[2021-06-30] MEDS ORDERED: ONDA-83 PO (09:06)
[2021-06-30] MEDS ORDERED: COLA100C5 PO (09:06)
[2021-06-30] MEDS ORDERED: ACET1TAB55 PO (09:06)
[2021-06-30] MEDS ORDERED: MIRA1POW3 PO (09:06)
[2021-06-30] MEDS ORDERED: PERCOCET PO (09:06)
[2021-06-30] MEDS ORDERED: SENN18TA PO (09:06)
[2021-06-30] MEDS ORDERED: BISAC5TA PO (09:06)
[2021-06-30] MEDS ORDERED: TRAM50TA2 PO (09:06)
[2021-06-30] MEDS ORDERED: XARE10TA PO (09:14)
[2021-06-30] MEDS ORDERED: LACT20EL PO (09:14)
[2021-06-30 14:00] VITALS: BP 121/62
[2021-06-30] MEDS: RIVAROXABAN 10 MG TAB (XARELTO) PO SCH (17:02)
[2021-06-30 21:38] VITALS: BP 110/55
[2021-06-30] MEDS: amLODIPine 5 MG TAB PO SCH (21:38)
[2021-06-30] MEDS: MONTELUKAST 10 MG TAB PO SCH (21:38)
[2021-06-30] MEDS: BENAZEPRIL 5MG TAB PO SCH (21:39)
[2021-06-30] MEDS: SENNA 8.6 MG TAB (SENOKOT) PO SCH (21:39)
[2021-06-30] MEDS: SIMVASTATIN 20 MG TAB PO SCH (21:39)
[2021-06-30 22:00] VITALS: BP 110/55
[2021-07-01 06:00] VITALS: BP 100/76
[2021-07-01] MEDS: ONDANSETRON 4MG TAB PO SCH ×2 (06:12)
[2021-07-01 06:37] LABS: HEMATOCRIT 29.9 % (36.0-47.0); HEMOGLOBIN 9.8 g/dl (12.0-15.5); MEAN CORPUSCULAR HEMOGLOBIN 28.2 pg (27.0-33.0); MEAN CORPUSCULAR HGB CONC 32.8 g/dl (32.0-36.5); MEAN CORPUSCULAR VOLUME 85.9 fl (80.0-96.0); PLATELET COUNT, AUTOMATED 290 10^3/uL (150-450); RED BLOOD COUNT 3.48 10^6/uL (4.00-5.40); WHITE BLOOD COUNT 5.5 10^3/uL (4.0-10.0)
[2021-07-01 07:01] LABS: BLOOD UREA NITROGEN 18 MG/DL (7-18); CARBON DIOXIDE LEVEL 29 MEQ/L (21-32); CHLORIDE LEVEL 105 MEQ/L (98-107); GLOMERULAR FILTRATION RATE > 60.0 (>39); GLUCOSE, FASTING 101 MG/DL (70-100); POTASSIUM SERUM 4.6 MEQ/L (3.5-5.1); SODIUM LEVEL 139 MEQ/L (136-145)
[2021-07-01] MEDS: DOCUSATE SODIUM 100MG CAPSULE PO SCH (07:26)
[2021-07-01] MEDS: PANTOPRAZOLE 40MG TAB (PROTONIX) PO SCH (07:26)
[2021-07-01] MEDS: ACETAMINOPHEN TAB 650MG DOSE (2X325MG) PO PRN (07:26)
[2021-07-13] MEDS ORDERED: ASPIRIN 81MG ENTERIC TABLET PO SCH (09:00)
== END 2021-07-01 07:40 | DRG 482 ==
LOC: M ED 11:33 → M ED INP 16:22 → M PCU 20:05 → M MS5PR 06-27 16:21
PROVIDERS: ADMIT Internal Medicine; ATTEND Internal Medicine
PROC: 0QS706Z Reposition Left Upper Femur with Intramedullary Internal Fixation Device, Open Approach (ICD-10-PCS; principal; 2021-06-27 07:30)
DX: S72.22XA Displaced subtrochanteric fracture of left femur, initial encounter for closed fracture (principal); J45.909 Unspecified asthma, uncomplicated; I10 Essential (primary) hypertension; D64.9 Anemia, unspecified; E78.5 Hyperlipidemia, unspecified; K21.9 Gastro-esophageal reflux disease without esophagitis; M54.9 Dorsalgia, unspecified; R00.0 Tachycardia, unspecified; K59.09 Other constipation; M81.0 Age-related osteoporosis without current pathological fracture; F41.9 Anxiety disorder, unspecified; Z79.899 Other long term (current) drug therapy; Z88.8 Allergy status to other drugs, medicaments and biological substances; W18.30XA Fall on same level, unspecified, initial encounter; Y92.009 Unspecified place in unspecified non-institutional (private) residence as the place of occurrence of the external cause; Z87.891 Personal history of nicotine dependence

== ENCOUNTER 2021-06-30 10:34 | Inpatient (IN) | payer MEDICARE, BC, OTHER ==
[~2021-06-30] VITALS: Ht 160 cm; Wt 57.2 kg
[~2021-06-30 10:34] MED LIST changes: +ACET1TAB55 PO; +BISAC5TA PO; +COLA100C5 PO; +CYCL5TAB PO; +LACT20EL PO; +LACT3000 PO; +LEVOTAB10 PO; +LUTE6TAB2 PO; +MIRA1POW3 PO; +OMEGCAP4 PO; +ONDA-83 PO; +PERCOCET PO; +SENN18TA PO; +TRAM50TA2 PO; +XARE10TA PO
[2021-06-30] MEDS ORDERED: oxyCODONE 5MG TAB PO PRN (17:50)
[2021-06-30] MEDS ORDERED: BISACODYL 10 MG SUPP PR PRN (17:50)
[2021-07-01 07:45] VITALS: BP 132/59
[2021-07-01] MEDS ORDERED: HOME MED LIST COMPLETE! XX SCH (08:20)
[2021-07-01] MEDS: FLUTICASONE PROP 0.05% NASAL SPRAY 16 GM (FLONASE) NARES SCH ×3 (09:00→20:29)
[2021-07-01] MEDS: REMEDY PHYTOPLEX Z-GUARD PASTE 113GM TUBE (FROM STOREROOM PRODUCT) TOP SCH ×3 (09:00→20:30)
[2021-07-01] MEDS ORDERED: ONDANSETRON 4MG ORAL DISINTEGRATING TAB PO PRN (09:16)
[2021-07-01] MEDS: COMBIVENT RESPIMAT 100-20MCG INHALER 4GM INH SCH ×3 (09:27→19:41)
[2021-07-01] MEDS: CYCLOBENZAPRINE 5MG TABLET PO PRN (10:10)
[2021-07-01] MEDS: BISACODYL 5 MG TAB PO SCH (10:12)
[2021-07-01] MEDS: MIRALAX *UNIT DOSE* 17GM PACKET PO SCH (10:12)
[2021-07-01] MEDS ORDERED: LACTULOSE 20 GM/30 ML SYRUP UD PO SCH (12:00)
[2021-07-01] MEDS: **hydrALAZINE HCL** 25 MG TAB PO SCH ×3 (12:06→23:04)
[2021-07-01] MEDS ORDERED: LACTULOSE 20 GM/30 ML SYRUP UD PO PRN (13:10)
[2021-07-01 13:15] LABS: BASO # 0.1 10^3/uL (0.0-0.2); BASO % 0.9 % (0.0-1.0); EOS # 0.2 10^3/uL (0.0-0.5); EOS % 2.7 % (0.0-3.0); HEMATOCRIT 32.4 % (36.0-47.0); HEMOGLOBIN 10.4 g/dl (12.0-15.5); LYMPH # 1.1 10^3/uL (1.5-5.0); LYMPH % 17.2 % (24.0-44.0); MEAN CORPUSCULAR HEMOGLOBIN 27.6 pg (27.0-33.0); MEAN CORPUSCULAR HGB CONC 32.1 g/dl (32.0-36.5); MEAN CORPUSCULAR VOLUME 85.9 fl (80.0-96.0); MONO # 0.6 10^3/uL (0.0-0.8); MONO % 9.3 % (2.0-8.0); NEUTROPHILS # 4.4 10^3/uL (1.5-8.5); NEUTROPHILS % 69.4 % (36.0-66.0); PLATELET COUNT, AUTOMATED 340 10^3/uL (150-450); RED BLOOD COUNT 3.77 10^6/uL (4.00-5.40); WHITE BLOOD COUNT 6.3 10^3/uL (4.0-10.0)
[2021-07-01 13:33] LABS: ALBUMIN 2.8 GM/DL (3.2-5.2); ALT/SGPT 33 U/L (12-78); BILIRUBIN,TOTAL 0.6 MG/DL (0.2-1.0); BLOOD UREA NITROGEN 20 MG/DL (7-18); CALCIUM LEVEL 9.8 MG/DL (8.8-10.2); CARBON DIOXIDE LEVEL 29 MEQ/L (21-32); CHLORIDE LEVEL 102 MEQ/L (98-107); CREATININE FOR GFR 0.62 MG/DL (0.55-1.30); GLOMERULAR FILTRATION RATE > 60.0 (>39); GLUCOSE, FASTING 108 MG/DL (70-100); POTASSIUM SERUM 4.1 MEQ/L (3.5-5.1); SODIUM LEVEL 138 MEQ/L (136-145); TOTAL PROTEIN 6.6 GM/DL (6.4-8.2)
[2021-07-01 14:00] VITALS: BP 133/60
[2021-07-01] MEDS ORDERED: FLEET ENEMA PR ONE (16:05)
[2021-07-01] MEDS: RIVAROXABAN 10 MG TAB (XARELTO) PO SCH (17:15)
[2021-07-01] MEDS: DOCUSATE SODIUM 100MG CAPSULE PO SCH ×2 (17:16→20:27)
[2021-07-01] MEDS: ACETAMINOPHEN 500 MG TAB PO SCH ×2 (17:16→20:29)
[2021-07-01 20:00] VITALS: BP 130/61
[2021-07-01] MEDS: SENNA 8.6 MG TAB (SENOKOT) PO SCH (20:27)
[2021-07-01] MEDS: BENAZEPRIL 5MG TAB PO SCH (20:27)
[2021-07-01] MEDS: amLODIPine 5 MG TAB PO SCH (20:28)
[2021-07-01] MEDS: MONTELUKAST 10 MG TAB PO SCH (20:28)
[2021-07-01] MEDS: SIMVASTATIN 20 MG TAB PO SCH (23:10)
[2021-07-02] MEDS: SIMVASTATIN 20 MG TAB PO SCH ×2 (00:56→20:31)
[2021-07-02] MEDS: **hydrALAZINE HCL** 25 MG TAB PO SCH ×4 (05:42→23:34)
[2021-07-02 06:00] VITALS: BP 127/60
[2021-07-02 07:06] LABS: BASO # 0.1 10^3/uL (0.0-0.2); BASO % 1.4 % (0.0-1.0); EOS # 0.4 10^3/uL (0.0-0.5); EOS % 7.9 % (0.0-3.0); HEMATOCRIT 30.3 % (36.0-47.0); LYMPH # 1.5 10^3/uL (1.5-5.0); LYMPH % 29.9 % (24.0-44.0); MEAN CORPUSCULAR HEMOGLOBIN 27.8 pg (27.0-33.0); MEAN CORPUSCULAR VOLUME 84.2 fl (80.0-96.0); MONO # 0.7 10^3/uL (0.0-0.8); MONO % 13.2 % (2.0-8.0); NEUTROPHILS # 2.3 10^3/uL (1.5-8.5); NEUTROPHILS % 47.2 % (36.0-66.0); PLATELET COUNT, AUTOMATED 303 10^3/uL (150-450); WHITE BLOOD COUNT 4.9 10^3/uL (4.0-10.0)
[2021-07-02] MEDS: COMBIVENT RESPIMAT 100-20MCG INHALER 4GM INH SCH ×3 (07:15→19:35)
[2021-07-02 07:30] LABS: BLOOD UREA NITROGEN 14 MG/DL (7-18); CALCIUM LEVEL 8.9 MG/DL (8.8-10.2); CARBON DIOXIDE LEVEL 33 MEQ/L (21-32); CHLORIDE LEVEL 104 MEQ/L (98-107); CREATININE FOR GFR 0.66 MG/DL (0.55-1.30); GLOMERULAR FILTRATION RATE > 60.0 (>39); GLUCOSE, FASTING 106 MG/DL (70-100); POTASSIUM SERUM 4.6 MEQ/L (3.5-5.1); SODIUM LEVEL 138 MEQ/L (136-145)
[2021-07-02] MEDS: REMEDY PHYTOPLEX Z-GUARD PASTE 113GM TUBE (FROM STOREROOM PRODUCT) TOP SCH ×3 (08:32→20:32)
[2021-07-02] MEDS: FLUTICASONE PROP 0.05% NASAL SPRAY 16 GM (FLONASE) NARES SCH ×2 (08:34→20:32)
[2021-07-02] MEDS: ACETAMINOPHEN 500 MG TAB PO SCH ×3 (08:35→20:32)
[2021-07-02] MEDS: PANTOPRAZOLE 40MG TAB (PROTONIX) PO SCH (08:35)
[2021-07-02] MEDS: DOCUSATE SODIUM 100MG CAPSULE PO SCH ×3 (08:35→20:30)
[2021-07-02] MEDS: BISACODYL 5 MG TAB PO SCH (08:35)
[2021-07-02] MEDS: MIRALAX *UNIT DOSE* 17GM PACKET PO SCH (08:36)
[2021-07-02 11:20] VITALS: BP 141/64
[2021-07-02] MEDS: CYCLOBENZAPRINE 5MG TABLET PO PRN ×2 (12:31→20:31)
[2021-07-02 14:00] VITALS: BP 122/54
[2021-07-02 17:53] VITALS: BP 115/71
[2021-07-02] MEDS: RIVAROXABAN 10 MG TAB (XARELTO) PO SCH (17:55)
[2021-07-02 20:00] VITALS: BP 141/63
[2021-07-02] MEDS: MONTELUKAST 10 MG TAB PO SCH (20:30)
[2021-07-02] MEDS: amLODIPine 5 MG TAB PO SCH (20:30)
[2021-07-02] MEDS: SENNA 8.6 MG TAB (SENOKOT) PO SCH (20:31)
[2021-07-02] MEDS: BENAZEPRIL 5MG TAB PO SCH (20:31)
[2021-07-02] MEDS: MAGNESIUM OXIDE 400MG TAB (MAG-OX) PO SCH (20:31)
[2021-07-03] MEDS: **hydrALAZINE HCL** 25 MG TAB PO SCH ×3 (05:39→17:16)
[2021-07-03 06:00] VITALS: BP 127/54
[2021-07-03] MEDS: REMEDY PHYTOPLEX Z-GUARD PASTE 113GM TUBE (FROM STOREROOM PRODUCT) TOP SCH ×3 (09:00→20:21)
[2021-07-03] MEDS: DOCUSATE SODIUM 100MG CAPSULE PO SCH ×3 (09:00→20:18)
[2021-07-03] MEDS: BISACODYL 5 MG TAB PO SCH (09:01)
[2021-07-03] MEDS: FLUTICASONE PROP 0.05% NASAL SPRAY 16 GM (FLONASE) NARES SCH ×2 (09:01→20:21)
[2021-07-03] MEDS: ACETAMINOPHEN 500 MG TAB PO SCH ×3 (09:01→20:18)
[2021-07-03] MEDS: MAGNESIUM OXIDE 400MG TAB (MAG-OX) PO SCH ×2 (09:01→20:18)
[2021-07-03] MEDS: MIRALAX *UNIT DOSE* 17GM PACKET PO SCH (09:01)
[2021-07-03] MEDS: PANTOPRAZOLE 40MG TAB (PROTONIX) PO SCH (09:01)
[2021-07-03] MEDS: COMBIVENT RESPIMAT 100-20MCG INHALER 4GM INH SCH ×3 (09:44→20:15)
[2021-07-03 12:36] VITALS: BP 148/65
[2021-07-03 14:00] VITALS: BP 131/62
[2021-07-03 17:12] VITALS: BP 140/67
[2021-07-03] MEDS: RIVAROXABAN 10 MG TAB (XARELTO) PO SCH (17:17)
[2021-07-03 20:00] VITALS: BP 129/59
[2021-07-03] MEDS: MONTELUKAST 10 MG TAB PO SCH (20:18)
[2021-07-03] MEDS: SENNA 8.6 MG TAB (SENOKOT) PO SCH (20:18)
[2021-07-03] MEDS: SIMVASTATIN 20 MG TAB PO SCH (20:18)
[2021-07-03] MEDS: amLODIPine 5 MG TAB PO SCH (20:19)
[2021-07-03] MEDS: BENAZEPRIL 5MG TAB PO SCH (20:21)
[2021-07-04] MEDS: **hydrALAZINE HCL** 25 MG TAB PO SCH ×5 (00:26→23:56)
[2021-07-04 06:00] VITALS: BP 129/61
[2021-07-04] MEDS: COMBIVENT RESPIMAT 100-20MCG INHALER 4GM INH SCH ×3 (07:09→19:39)
[2021-07-04 08:20] LABS: BASO # 0.1 10^3/uL (0.0-0.2); BASO % 1.3 % (0.0-1.0); EOS # 0.2 10^3/uL (0.0-0.5); EOS % 3.8 % (0.0-3.0); HEMATOCRIT 33.9 % (36.0-47.0); HEMOGLOBIN 10.9 g/dl (12.0-15.5); LYMPH # 1.1 10^3/uL (1.5-5.0); LYMPH % 21.5 % (24.0-44.0); MEAN CORPUSCULAR HEMOGLOBIN 28.1 pg (27.0-33.0); MEAN CORPUSCULAR HGB CONC 32.2 g/dl (32.0-36.5); MEAN CORPUSCULAR VOLUME 87.4 fl (80.0-96.0); MONO # 0.6 10^3/uL (0.0-0.8); MONO % 10.6 % (2.0-8.0); NEUTROPHILS # 3.3 10^3/uL (1.5-8.5); NEUTROPHILS % 62.4 % (36.0-66.0); PLATELET COUNT, AUTOMATED 419 10^3/uL (150-450); RED BLOOD COUNT 3.88 10^6/uL (4.00-5.40); WHITE BLOOD COUNT 5.2 10^3/uL (4.0-10.0)
[2021-07-04 08:42] LABS: BLOOD UREA NITROGEN 16 MG/DL (7-18); CALCIUM LEVEL 9.4 MG/DL (8.8-10.2); CARBON DIOXIDE LEVEL 29 MEQ/L (21-32); CHLORIDE LEVEL 105 MEQ/L (98-107); CREATININE FOR GFR 0.58 MG/DL (0.55-1.30); GLOMERULAR FILTRATION RATE > 60.0 (>39); GLUCOSE, FASTING 80 MG/DL (70-100); POTASSIUM SERUM 4.7 MEQ/L (3.5-5.1); SODIUM LEVEL 138 MEQ/L (136-145)
[2021-07-04] MEDS: REMEDY PHYTOPLEX Z-GUARD PASTE 113GM TUBE (FROM STOREROOM PRODUCT) TOP SCH ×3 (09:00→21:00)
[2021-07-04] MEDS: PANTOPRAZOLE 40MG TAB (PROTONIX) PO SCH (09:33)
[2021-07-04] MEDS: CYCLOBENZAPRINE 5MG TABLET PO PRN (09:33)
[2021-07-04] MEDS: BISACODYL 5 MG TAB PO SCH (09:33)
[2021-07-04] MEDS: FLUTICASONE PROP 0.05% NASAL SPRAY 16 GM (FLONASE) NARES SCH ×2 (09:33→21:03)
[2021-07-04] MEDS: MAGNESIUM OXIDE 400MG TAB (MAG-OX) PO SCH ×2 (09:33→21:03)
[2021-07-04] MEDS: DOCUSATE SODIUM 100MG CAPSULE PO SCH ×3 (09:33→21:02)
[2021-07-04] MEDS: MIRALAX *UNIT DOSE* 17GM PACKET PO SCH (09:33)
[2021-07-04] MEDS: ACETAMINOPHEN 500 MG TAB PO SCH ×3 (09:36→21:02)
[2021-07-04 14:00] VITALS: BP 128/61
[2021-07-04] MEDS: RIVAROXABAN 10 MG TAB (XARELTO) PO SCH (17:30)
[2021-07-04 19:58] VITALS: BP 153/68
[2021-07-04] MEDS: BENAZEPRIL 5MG TAB PO SCH (21:01)
[2021-07-04] MEDS: SENNA 8.6 MG TAB (SENOKOT) PO SCH (21:01)
[2021-07-04] MEDS: MONTELUKAST 10 MG TAB PO SCH (21:02)
[2021-07-04] MEDS: amLODIPine 5 MG TAB PO SCH (21:02)
[2021-07-04] MEDS: SIMVASTATIN 20 MG TAB PO SCH (21:03)
[2021-07-04] MEDS: GABAPENTIN 100 MG CAP PO SCH (21:03)
[2021-07-04 23:56] VITALS: BP 116/59
[2021-07-05 06:13] VITALS: BP 145/64
[2021-07-05] MEDS: **hydrALAZINE HCL** 25 MG TAB PO SCH ×4 (06:25→23:11)
[2021-07-05] MEDS: COMBIVENT RESPIMAT 100-20MCG INHALER 4GM INH SCH ×3 (07:14→19:45)
[2021-07-05] MEDS: REMEDY PHYTOPLEX Z-GUARD PASTE 113GM TUBE (FROM STOREROOM PRODUCT) TOP SCH ×3 (09:00→21:00)
[2021-07-05] MEDS: DOCUSATE SODIUM 100MG CAPSULE PO SCH ×3 (09:57→20:59)
[2021-07-05] MEDS: MAGNESIUM OXIDE 400MG TAB (MAG-OX) PO SCH ×2 (09:57→21:01)
[2021-07-05] MEDS: FLUTICASONE PROP 0.05% NASAL SPRAY 16 GM (FLONASE) NARES SCH ×2 (09:57→21:01)
[2021-07-05] MEDS: BISACODYL 5 MG TAB PO SCH (09:57)
[2021-07-05] MEDS: ACETAMINOPHEN 500 MG TAB PO SCH ×3 (09:57→21:01)
[2021-07-05] MEDS: MIRALAX *UNIT DOSE* 17GM PACKET PO SCH (09:57)
[2021-07-05] MEDS: PANTOPRAZOLE 40MG TAB (PROTONIX) PO SCH (09:57)
[2021-07-05 14:00] VITALS: BP 147/66
[2021-07-05] MEDS: RIVAROXABAN 10 MG TAB (XARELTO) PO SCH (17:16)
[2021-07-05 18:00] VITALS: BP 148/69
[2021-07-05] MEDS: CYCLOBENZAPRINE 5MG TABLET PO PRN (20:59)
[2021-07-05] MEDS: SENNA 8.6 MG TAB (SENOKOT) PO SCH (20:59)
[2021-07-05] MEDS: GABAPENTIN 100 MG CAP PO SCH (20:59)
[2021-07-05] MEDS: MONTELUKAST 10 MG TAB PO SCH (20:59)
[2021-07-05] MEDS: amLODIPine 5 MG TAB PO SCH (21:00)
[2021-07-05] MEDS: BENAZEPRIL 5MG TAB PO SCH (21:00)
[2021-07-05] MEDS: SIMVASTATIN 20 MG TAB PO SCH (21:00)
[2021-07-06] MEDS: **hydrALAZINE HCL** 25 MG TAB PO SCH ×4 (05:29→23:37)
[2021-07-06 06:00] VITALS: BP 145/70
[2021-07-06] MEDS: COMBIVENT RESPIMAT 100-20MCG INHALER 4GM INH SCH ×3 (07:24→20:21)
[2021-07-06] MEDS: BISACODYL 5 MG TAB PO SCH (08:11)
[2021-07-06] MEDS: MIRALAX *UNIT DOSE* 17GM PACKET PO SCH (08:11)
[2021-07-06] MEDS: ACETAMINOPHEN 500 MG TAB PO SCH ×3 (08:12→20:35)
[2021-07-06] MEDS: FLUTICASONE PROP 0.05% NASAL SPRAY 16 GM (FLONASE) NARES SCH ×2 (08:12→20:37)
[2021-07-06] MEDS: DOCUSATE SODIUM 100MG CAPSULE PO SCH ×3 (08:12→20:36)
[2021-07-06] MEDS: PANTOPRAZOLE 40MG TAB (PROTONIX) PO SCH (08:12)
[2021-07-06] MEDS: MAGNESIUM OXIDE 400MG TAB (MAG-OX) PO SCH ×2 (08:12→20:35)
[2021-07-06] MEDS: REMEDY PHYTOPLEX Z-GUARD PASTE 113GM TUBE (FROM STOREROOM PRODUCT) TOP SCH ×3 (08:12→20:36)
[2021-07-06 14:00] VITALS: BP 179/77
[2021-07-06] MEDS: RIVAROXABAN 10 MG TAB (XARELTO) PO SCH (17:06)
[2021-07-06 20:00] VITALS: BP 147/68
[2021-07-06] MEDS: SENNA 8.6 MG TAB (SENOKOT) PO SCH (20:32)
[2021-07-06] MEDS: GABAPENTIN 100 MG CAP PO SCH (20:32)
[2021-07-06] MEDS: MONTELUKAST 10 MG TAB PO SCH (20:33)
[2021-07-06] MEDS: amLODIPine 5 MG TAB PO SCH (20:34)
[2021-07-06] MEDS: SIMVASTATIN 20 MG TAB PO SCH (20:35)
[2021-07-06] MEDS: BENAZEPRIL 5MG TAB PO SCH (20:36)
[2021-07-06] MEDS: CYCLOBENZAPRINE 5MG TABLET PO PRN (21:46)
[2021-07-07] MEDS: **hydrALAZINE HCL** 25 MG TAB PO SCH ×2 (05:40→12:51)
[2021-07-07 05:45] VITALS: BP 132/62
[2021-07-07] MEDS: COMBIVENT RESPIMAT 100-20MCG INHALER 4GM INH SCH ×2 (08:00→13:19)
[2021-07-07] MEDS: REMEDY PHYTOPLEX Z-GUARD PASTE 113GM TUBE (FROM STOREROOM PRODUCT) TOP SCH (09:00)
[2021-07-07] MEDS: MAGNESIUM OXIDE 400MG TAB (MAG-OX) PO SCH (09:48)
[2021-07-07] MEDS: MIRALAX *UNIT DOSE* 17GM PACKET PO SCH (09:48)
[2021-07-07] MEDS: PANTOPRAZOLE 40MG TAB (PROTONIX) PO SCH (09:48)
[2021-07-07] MEDS: DOCUSATE SODIUM 100MG CAPSULE PO SCH (09:49)
[2021-07-07] MEDS: FLUTICASONE PROP 0.05% NASAL SPRAY 16 GM (FLONASE) NARES SCH (09:49)
[2021-07-07] MEDS: BISACODYL 5 MG TAB PO SCH (09:49)
[2021-07-07] MEDS: ACETAMINOPHEN 500 MG TAB PO SCH (09:49)
[2021-07-07] MEDS ORDERED: ASPI-551 PO (10:01)
[2021-07-07] MEDS ORDERED: LOTR5CAP2 PO (10:01)
[2021-07-07] MEDS ORDERED: XARE10TA PO (10:01)
[2021-07-07] MEDS ORDERED: GABA-1171 PO (10:01)
[2021-07-07] MEDS ORDERED: NEXI20CA PO (10:01)
[2021-07-07] MEDS ORDERED: MAGN400T2 PO (10:01)
[2021-07-07] MEDS ORDERED: MONT10TA97 PO (10:01)
[2021-07-07] MEDS ORDERED: CYCL5TAB PO (10:01)
[2021-07-07] MEDS ORDERED: FLON27.5 (10:01)
[2021-07-07] MEDS ORDERED: LOVA20TA2 PO (10:01)
[2021-07-07] MEDS ORDERED: HYDR-3910 PO (10:03)
[2021-07-07 12:51] VITALS: BP 131/64
[2021-07-13] MEDS ORDERED: ASPIRIN 81MG ENTERIC TABLET PO SCH (09:00)
== END 2021-07-07 14:25 | disposition home or self-care (01) | DRG 561 ==
LOC: M PM&R 07-01 07:40
PROVIDERS: ADMIT Physical Medicine & Rehabilitation; ATTEND Physical Medicine & Rehabilitation
DX: S72.22XD Displaced subtrochanteric fracture of left femur, subsequent encounter for closed fracture with routine healing (principal); I10 Essential (primary) hypertension; E78.5 Hyperlipidemia, unspecified; M54.9 Dorsalgia, unspecified; D64.9 Anemia, unspecified; K21.9 Gastro-esophageal reflux disease without esophagitis; M85.80 Other specified disorders of bone density and structure, unspecified site; M81.0 Age-related osteoporosis without current pathological fracture; J45.909 Unspecified asthma, uncomplicated; Z74.09 Other reduced mobility; Z74.1 Need for assistance with personal care; K59.00 Constipation, unspecified; Z98.49 Cataract extraction status, unspecified eye; Z87.891 Personal history of nicotine dependence; Z79.01 Long term (current) use of anticoagulants; Z79.899 Other long term (current) drug therapy; Z88.1 Allergy status to other antibiotic agents; W18.30XD Fall on same level, unspecified, subsequent encounter

== ENCOUNTER → 2021-07-22 | Outpatient (CLI) | payer MEDICARE, BC, OTHER ==
[~2021-07-22] MED LIST changes: +ASPI-551 PO; +GABA-1171 PO; +HYDR-3910 PO; +MAGN400T2 PO
== END ==
LOC: M SOG 10:20
PROVIDERS: ATTEND Orthopaedic Surgery
DX: S72.22XD Displaced subtrochanteric fracture of left femur, subsequent encounter for closed fracture with routine healing (principal)

== ENCOUNTER → 2021-08-22 | Outpatient (CLI) | payer MEDICARE, BC, OTHER | LOC: M SOG 08:29 | PROVIDERS: ATTEND Orthopaedic Surgery | DX: S72.22XD Displaced subtrochanteric fracture of left femur, subsequent encounter for closed fracture with routine healing (principal) ==

== ENCOUNTER → 2021-10-13 | Outpatient (CLI) | payer MEDICARE, BC, OTHER ==
[~2021-10-13] MED LIST changes: +ADV250INH INH; +ALLE24TA7 PO; +CALC-176 PO; +FAMO10TA50 PO; +HYDR12.55 PO; -LACT3000 PO; +LACT30006 PO; +MUCI600T31 PO; +RA M1000 PO; +VITA100093 PO; +VITMTA PO
== END ==
LOC: M LABSMTC 10:56
PROVIDERS: ATTEND Anesthesiology
DX: Z01.812 Encounter for preprocedural laboratory examination (principal); Z20.822 Contact with and (suspected) exposure to COVID-19

== ENCOUNTER 2021-10-16 11:39 | Day surgery (SDC) | payer MEDICARE, BC, OTHER ==
[~2021-10-16] VITALS: Ht 160 cm; Wt 51.2 kg
[~2021-10-16 11:39] MED LIST changes: +LIDOCAINE 2% 100MG/5ML SDV (FOR ANES.) As Ordered ONE; +NS 1,000 ML IV ONE; +fentaNYL 100 MCG/2 ML INJECTION As Ordered ONE; +propofoL 500 MG/50 ML VIAL As Ordered ONE
[2021-10-16] MEDS ORDERED: GLYCOPYRROLATE INJ 0.2 MG/ML 2 ML VIAL As Ordered ONE (13:23)
[2021-10-16] MEDS ORDERED: propofoL 200 MG/20 ML VIAL As Ordered ONE (13:52)
[2021-10-16 14:44] VITALS: BP 106/60
== END 2021-10-16 14:45 | disposition home or self-care (01) ==
LOC: M OPP 11:39
PROVIDERS: ATTEND Surgery
DX: R19.4 Change in bowel habit (principal); R63.4 Abnormal weight loss; R10.13 Epigastric pain; K64.9 Unspecified hemorrhoids; Q43.8 Other specified congenital malformations of intestine; I10 Essential (primary) hypertension; E78.5 Hyperlipidemia, unspecified; K21.9 Gastro-esophageal reflux disease without esophagitis; M19.90 Unspecified osteoarthritis, unspecified site; M85.88 Other specified disorders of bone density and structure, other site; G43.909 Migraine, unspecified, not intractable, without status migrainosus; J45.909 Unspecified asthma, uncomplicated; Z87.891 Personal history of nicotine dependence; Z88.1 Allergy status to other antibiotic agents; Z79.899 Other long term (current) drug therapy
CPT/HCPCS: 43235; 45378; J3010

== ENCOUNTER → 2021-10-24 | Outpatient (REF) | payer MEDICARE, BC, OTHER ==
[~2021-10-24] MED LIST changes: -LIDOCAINE 2% 100MG/5ML SDV (FOR ANES.) As Ordered ONE; -NS 1,000 ML IV ONE; -fentaNYL 100 MCG/2 ML INJECTION As Ordered ONE; -propofoL 500 MG/50 ML VIAL As Ordered ONE
== END ==
LOC: M PLALAB 10:55
PROVIDERS: ATTEND Nurse Practitioner Family
DX: Z12.4 Encounter for screening for malignant neoplasm of cervix (principal)
CPT/HCPCS: 87624; G0123

== ENCOUNTER → 2021-10-24 | Outpatient (CLI) | payer MEDICARE, BC, OTHER | LOC: M WHC 10:11 | PROVIDERS: ATTEND Nurse Practitioner Family | DX: Z12.31 Encounter for screening mammogram for malignant neoplasm of breast (principal); Z13.820 Encounter for screening for osteoporosis; M85.851 Other specified disorders of bone density and structure, right thigh ==

== ENCOUNTER → 2021-11-11 | Outpatient (REF) | payer MEDICARE, BC, OTHER ==
[2021-11-12 14:29] LABS: PERCENT SATURATION 7.4 % (13.2-45.0)
== END ==
LOC: M LAB REF 13:14
PROVIDERS: ATTEND Internal Medicine
DX: D64.9 Anemia, unspecified (principal)

== ENCOUNTER → 2021-11-25 | Outpatient (CLI) | payer MEDICARE, BC, OTHER | LOC: M SOG 08:09 | PROVIDERS: ATTEND Orthopaedic Surgery | DX: S72.22XD Displaced subtrochanteric fracture of left femur, subsequent encounter for closed fracture with routine healing (principal) ==

== ENCOUNTER → 2021-12-23 | Outpatient (CLI) | payer MEDICARE, BC, OTHER | LOC: M WUC 13:04 | PROVIDERS: ATTEND Physician Assistant | DX: S52.044A Nondisplaced fracture of coronoid process of right ulna, initial encounter for closed fracture (principal); S40.011A Contusion of right shoulder, initial encounter; S60.211A Contusion of right wrist, initial encounter; S40.021A Contusion of right upper arm, initial encounter; X58.XXXA Exposure to other specified factors, initial encounter; Y92.9 Unspecified place or not applicable ==

== ENCOUNTER → 2021-12-29 | Outpatient (CLI) | payer MEDICARE, BC, OTHER | LOC: M SOG 08:00 | PROVIDERS: ATTEND Orthopaedic Surgery | DX: M25.521 Pain in right elbow (principal) ==

== ENCOUNTER → 2022-01-13 | Outpatient (REF) | payer MEDICARE, BC, OTHER ==
[~2022-01-13] MED LIST changes: -RA M1000 PO; +[UNRECOGNIZED DRUG - CODE] PO
[2022-01-13 18:29] LABS: FERRITIN 10 NG/ML (8-252); IRON (FE) 53 UG/DL (50-170)
== END ==
LOC: M LAB REF 16:13
PROVIDERS: ATTEND Registered Nurse
DX: D64.9 Anemia, unspecified (principal)

== ENCOUNTER → 2022-03-27 | Outpatient (CLI) | payer MEDICARE, BC, OTHER | LOC: M SOG 08:10 | PROVIDERS: ATTEND Orthopaedic Surgery | DX: S72.22XD Displaced subtrochanteric fracture of left femur, subsequent encounter for closed fracture with routine healing (principal); M79.621 Pain in right upper arm; Z96.7 Presence of other bone and tendon implants ==

== ENCOUNTER → 2022-10-26 | Outpatient (CLI) | payer MEDICARE, BC, OTHER ==
[~2022-10-26] MED LIST changes: +SENN-111 PO; -SENN18TA PO
== END ==
LOC: M WHC 09:59
PROVIDERS: ATTEND Nurse Practitioner Family
DX: Z12.31 Encounter for screening mammogram for malignant neoplasm of breast (principal)

== ENCOUNTER → 2023-03-10 | Outpatient (REF) | payer MEDICARE, BC, OTHER ==
[2023-03-10 13:27] LABS: C REACTIVE PROTEIN QUANTITATIV < 0.40 MG/DL (<1.0)
[2023-03-10 13:28] LABS: RHEUMATOID FACTOR QUANT < 3.5 IU/ML (<14)
[2023-03-12 11:09] LABS: ANTINUCLEAR ANTIBODIES DIRECT Negative (Negative); CYCLIC CITRULLINATED PEPTIDE 7 units (0-19)
== END ==
LOC: M LAB REF 12:02
PROVIDERS: ATTEND Internal Medicine
DX: I73.00 Raynaud's syndrome without gangrene (principal)

== ENCOUNTER → 2023-04-15 | Outpatient (CLI) | payer MEDICARE, BC, OTHER | LOC: M WUC 10:50 | PROVIDERS: ATTEND Internal Medicine | DX: M19.041 Primary osteoarthritis, right hand (principal); M19.042 Primary osteoarthritis, left hand; M79.642 Pain in left hand; M79.641 Pain in right hand ==

== ENCOUNTER → 2023-11-11 | Outpatient (CLI) | payer MEDICARE, BC, OTHER ==
[~2023-11-11] MED LIST changes: -HYDR-3910 PO; +HYDR25TA87 PO; -MIRA1POW3 PO; +MIRA33506 PO
== END ==
LOC: M WHC 10:25
PROVIDERS: ATTEND Nurse Practitioner Family
DX: Z12.31 Encounter for screening mammogram for malignant neoplasm of breast (principal)

== ENCOUNTER → 2023-11-11 | Outpatient (REF) | payer MEDICARE, BC, OTHER ==
[2023-11-13 11:57] LABS: HPV APTIMA Not Detected (Not Detected)
== END ==
LOC: M SFHCWAGY 14:48
PROVIDERS: ATTEND Nurse Practitioner Family
DX: Z12.4 Encounter for screening for malignant neoplasm of cervix (principal)

== ENCOUNTER → 2023-11-11 | Outpatient (CLI) | payer MEDICARE, BC, OTHER | LOC: M WHC 10:25 | PROVIDERS: ATTEND Nurse Practitioner Family | DX: Z13.820 Encounter for screening for osteoporosis (principal) ==

== ENCOUNTER 2024-05-24 13:52 | Emergency (ER) | payer MEDICARE, BC, OTHER ==
[~2024-05-24] VITALS: Ht 158.8 cm; Wt 53.6 kg
[~2024-05-24 13:52] MED LIST changes: -ADV250INH INH; -ADV500INH INH; +ADVA1AER10 INH; +ADVA1AER9 INH; -CYCL5TAB PO; +CYCL5TAB4 PO; +DENO60SY2 SC; -PROL60SO SC; -SENN-111 PO; +SENN-165 PO
[2024-05-24] MEDS: DERMABOND TOPICAL SKIN ADHESIVE TOP ONE (14:45)
[2024-05-24] MEDS: ACETAMINOPHEN 325 MG TAB PO ONE (14:54)
[2024-05-24 16:21] VITALS: BP 148/70; TEMP 98; O2SAT 98
[2024-05-24] MEDS: BOOSTRIX VACCINE (TETANUS/DIPHTH/ACEL. PERTUSSIS) 0.5ML SYR IM.IMMUN ONE (16:23)
== END 2024-05-24 16:27 | disposition home or self-care (01) ==
LOC: M ED 13:52
DX: S00.03XA Contusion of scalp, initial encounter (principal); S01.81XA Laceration without foreign body of other part of head, initial encounter; S80.212A Abrasion, left knee, initial encounter; S13.4XXA Sprain of ligaments of cervical spine, initial encounter; W10.8XXA Fall (on) (from) other stairs and steps, initial encounter; M19.041 Primary osteoarthritis, right hand; M50.31 Other cervical disc degeneration, high cervical region; M85.88 Other specified disorders of bone density and structure, other site; Y92.009 Unspecified place in unspecified non-institutional (private) residence as the place of occurrence of the external cause; Y93.89 Activity, other specified; Y99.9 Unspecified external cause status; Z88.1 Allergy status to other antibiotic agents; Z79.52 Long term (current) use of systemic steroids; Z79.899 Other long term (current) drug therapy

== ENCOUNTER → 2024-07-12 | Outpatient (REF) | payer MEDICARE, BC, OTHER | LOC: M LAB REF 17:17 | PROVIDERS: ATTEND Internal Medicine | DX: D50.9 Iron deficiency anemia, unspecified (principal) ==

== ENCOUNTER 2024-10-31 21:06 | Emergency (ER) | payer MEDICARE, BC ==
[~2024-10-31] VITALS: Ht 157.5 cm; Wt 55.4 kg
[2024-11-01] MEDS ORDERED: ISOVUE-370 76% 100 ML VIAL As Ordered ONE (03:28)
[2024-11-01] MEDS: LIDOCAINE 5% PATCH TD ONE (04:40)
[2024-11-01] MEDS: ONDANSETRON 4MG 2ML VIAL IV ONE (04:52)
[2024-11-01] MEDS: MORPHINE 4 MG/ML 1 ML VIAL IV ONE (04:53)
[2024-11-01] MEDS: PERCOCET 5MG/325MG TAB PO ONE (06:20)
[2024-11-01 06:22] VITALS: O2SAT 97
[2024-11-01] MEDS ORDERED: LIDO1ADH93 TD (07:11)
[2024-11-01] MEDS ORDERED: PERCOCET PO (07:11)
[2024-11-01] MEDS: MORPHINE 4 MG/ML 1 ML VIAL IV PRN (07:16)
[2024-11-01 08:30] VITALS: BP 149/65; TEMP 97.3; O2SAT 94
== END 2024-11-01 08:55 | disposition home or self-care (01) ==
LOC: M ED 21:06
DX: S22.41XA Multiple fractures of ribs, right side, initial encounter for closed fracture (principal); S20.219A Contusion of unspecified front wall of thorax, initial encounter; W55.12XA Struck by horse, initial encounter; J98.11 Atelectasis; K76.0 Fatty (change of) liver, not elsewhere classified; K44.9 Diaphragmatic hernia without obstruction or gangrene; K59.00 Constipation, unspecified; K21.9 Gastro-esophageal reflux disease without esophagitis; E55.9 Vitamin D deficiency, unspecified; J45.909 Unspecified asthma, uncomplicated; I10 Essential (primary) hypertension; Z88.1 Allergy status to other antibiotic agents; Y92.008 Other place in unspecified non-institutional (private) residence as the place of occurrence of the external cause; Y93.89 Activity, other specified; Y99.9 Unspecified external cause status; Z79.52 Long term (current) use of systemic steroids; Z79.1 Long term (current) use of non-steroidal anti-inflammatories (NSAID); Z79.899 Other long term (current) drug therapy
CPT/HCPCS: 71260; 74160; 80047; 96374; 96375; 96376; 99284; J2405; Q9967